=== PATIENT | male | born 1990 | race Caucasian/White ===

== ENCOUNTER 2024-06-20 14:45 | Emergency (ER) | payer BC, SELFPAY ==
[2024-06-20 14:50] VITALS: BP 131/90; BMI 24.7
--- NOTE | 2024-06-20 16:17 | ED.GENMED ---
Addendum entered and electronically signed by Zeus Laura PA-C 06/24/24 09:51:
Stool Cx positive for aeromonas. Pt indicates that his symptoms are worsening after 9 days. Will treat w/ azithromycin
Original Note:
History of Present Illness
<Ashish Mendoza MD, Resident - Last Filed: 06/20/24 19:34>
General
Chief Complaint: Dehydration Symptoms
Time Seen by Provider: 06/20/24 16:03
History of Present Illness
History of Present Illness:
34-year-old male presented to the ED with 4-day history of diarrhea, vomiting, fatigue, chills. He went to [facility] for vacation n 06/12. Symptoms started on 06/17/24 and on the first day he had 25 episodes of watery diarrhea . He took
Motrin for fever and chills. Despite traveling with 25 other family members he was only one affected by the symptoms. He denies any hematuria, hematochezia, hematemesis. He had only 1 episode of vomiting. He is currently staying hydrated
by drinking plenty of water and Gatorade. Yesterday he had 10 episodes of diarrhea, the only meal he had was half a sandwich. His diet on vacation included fruits, vegetables, chicken, seafood and he drank bottled water. He also reports of
some abdominal cramps. He has had 3 episodes of watery diarrhea in the past hour.
Review of Systems
<Ashish Mendoza MD, Resident - Last Filed: 06/20/24 19:34>
Review of Systems
ABD/GI: Reports abdominal pain, vomiting and diarrhea
Phy Exam
<Ashish Mendoza MD, Resident - Last Filed: 06/20/24 19:34>
General Physical Exam
General Presentation: well appearing
ENT Exam
ENT Exam: EOMI
Eye Exam
Eye Exam: PERRL
Cardiovascular Exam
Cardiovascular Exam: regular rate/rhythm and no murmur
Pulmonary Exam
Pulmonary Exam: lungs clear, no rales, no crackles, no rhonchi and no wheezing
Gastrointestinal Exam
Gastrointestinal Exam: normal bowel sounds, non tender, soft and non distended
Neurological Exam
Neurological Exam: alert and oriented x3
Psychiatric Exam
Psychiatric Exam: normal mood/affect
Course
<Ashish Mendoza MD, Resident - Last Filed: 06/20/24 19:34>
Orders/Labs/Results
Orders:
Orders
06/20/24 16:14
0.9% Sodium Chloride 500 ml [Nss] 500 ml IV BOLUS
06/20/24 16:29
Complete Blood Count/With Diff Urgent
Comprehensive Metabolic Panel Urgent
06/20/24 17:11
0.9% Sodium Chloride 1000 ml [Nss] 1,000 ml IV BOLUS
06/20/24 17:33
CDIFF [C difficile Antigen & Toxins] Urgent
LING Source: Feces/Stool
Specimen Description:
Date Specimen was Collected: 06/20/24
Time Specimen was Collected: 17:32
Ova & Parasites Giardia/Crypto AG [Giardia/Cryptosporidium Ag] Urgent
LING Source: Feces/Stool
Specimen Description:
Date Specimen was Collected: 06/20/24
Time Specimen was Collected: 17:32
Stool Culture Urgent
LING Source: Feces/Stool
Specimen Description:
Date Specimen was Collected: 06/20/24
Time Specimen was Collected: 17:32
06/20/24 17:59
Potassium Chloride 10% Elixir [KCl Elixir] 40 meq PO NOW STA
Abnormal Lab Results
06/20/24
16:29
MCV 77.4 L fL
(80.0-94.0)
Absolute Lymphs (auto) 1.0 L 10^3/uL
(1.2-3.4)
Absolute Monos (auto) 1.1 H 10^3/uL
(0.1-0.6)
Lymphocytes % 16.9 L %
(20.5-51.1)
Monocytes % 19.1 H %
(1.7-9.3)
Sodium 132 L mmol/L
(135-145)
Potassium 3.4 L mmol/L
(3.5-5.1)
Chloride 96 L mmol/L
(98-107)
Glucose 103 H mg/dl
(70-99)
06/20/24 16:29
06/20/24 16:29
Vital Signs
Initial and Last Documented VS:
Initial Vital Signs
Temp Pulse Resp BP Pulse Ox
98.4 F 118 20 131/90 100
06/20/24 14:50 06/20/24 14:50 06/20/24 14:50 06/20/24 14:50 06/20/24 14:50
Last Documented Vital Signs
Temp Pulse Resp BP Pulse Ox
98.4 F 92 20 131/90 100
06/20/24 14:50 06/20/24 16:27 06/20/24 14:50 06/20/24 14:50 06/20/24 16:27
<Miguel Angel Barragan MD - Last Filed: 06/20/24 17:13>
Orders/Labs/Results
Orders:
Orders
06/20/24 16:14
0.9% Sodium Chloride 500 ml [Nss] 500 ml IV BOLUS
06/20/24 16:29
Complete Blood Count/With Diff Urgent
Comprehensive Metabolic Panel Urgent
06/20/24 17:11
0.9% Sodium Chloride 1000 ml [Nss] 1,000 ml IV BOLUS
06/20/24 17:33
CDIFF [C difficile Antigen & Toxins] Urgent
LING Source: Feces/Stool
Specimen Description:
Date Specimen was Collected: 06/20/24
Time Specimen was Collected: 17:32
Ova & Parasites Giardia/Crypto AG [Giardia/Cryptosporidium Ag] Urgent
LING Source: Feces/Stool
Specimen Description:
Date Specimen was Collected: 06/20/24
Time Specimen was Collected: 17:32
Stool Culture Urgent
LING Source: Feces/Stool
Specimen Description:
Date Specimen was Collected: 06/20/24
Time Specimen was Collected: 17:32
06/20/24 17:59
Potassium Chloride 10% Elixir [KCl Elixir] 40 meq PO NOW STA
Abnormal Lab Results
06/20/24
16:29
MCV 77.4 L fL
(80.0-94.0)
Absolute Lymphs (auto) 1.0 L 10^3/uL
(1.2-3.4)
Absolute Monos (auto) 1.1 H 10^3/uL
(0.1-0.6)
Lymphocytes % 16.9 L %
(20.5-51.1)
Monocytes % 19.1 H %
(1.7-9.3)
Sodium 132 L mmol/L
(135-145)
Potassium 3.4 L mmol/L
(3.5-5.1)
Chloride 96 L mmol/L
(98-107)
Glucose 103 H mg/dl
(70-99)
06/20/24 16:29
06/20/24 16:29
Vital Signs
Initial and Last Documented VS:
Initial Vital Signs
Temp Pulse Resp BP Pulse Ox
98.4 F 118 20 131/90 100
06/20/24 14:50 06/20/24 14:50 06/20/24 14:50 06/20/24 14:50 06/20/24 14:50
Last Documented Vital Signs
Temp Pulse Resp BP Pulse Ox
98.4 F 92 20 131/90 100
06/20/24 14:50 06/20/24 16:27 06/20/24 14:50 06/20/24 14:50 06/20/24 16:27
<Ashish Mendoza MD, Resident - Last Filed: 06/20/24 19:34>
*Critical Care Note
Total Time (30-74mins, 75-104mins- exclusive of procedures): Not Applicable
<Ashish Mendoza MD, Resident - Last Filed: 06/20/24 19:34>
Update Note
Update Note:
34-year-old male presented to the ED with potential gastroenteritis. We will conduct stool testing for Giardia, cryptococcus and C. difficile antigen and also stool culture. Additionally will also check CBC, CMP. Will give him 1 L of IV fluids.
Physical exam was reassuring . Shigella enterotoxin E. coli is also in the differential , will wait for stool culture results. If it is positive then we will add antibiotics however if everything remains stable then we will treat him with
supportive care.
Plan to discharge the patient as he feels better and is stable. Advised for supportive care at home, more proteins and less carb and fat diet. We will call the patient with lab results. Advised to hydrate with Gatorade and water.
ED Attending Note
<Ashish Mendoza MD, Resident - Last Filed: 06/20/24 19:34>
-
Portions of this chart may have been created with voice recognition software.� Occasional wrong word or��sound alike� substitutions may have occurred due to the inherent limitations of voice recognition software.
<Miguel Angel Barragan MD - Last Filed: 06/20/24 17:13>
ED Attending Note
Patient seen and examined by attending physician: Yes
I performed the substantive portion of visit, reviewed & personally made and approve the management plan that is documented in note by myself or RAZ.: Yes
I performed a history and physical exam of patient and discussed management with resident, I reviewed resident's note and agree with documented findings and plan of care.: Yes
ED Attending Note:
34-year-old healthy male with 3 to 4 days of significant watery diarrhea. No blood or mucus. Initially had some fever and chills but that has resolved. 1 episode of vomiting days ago but none now. Patient returned from the [facility].
No one else was ill at that time. No recent antibiotics.
On exam patient is nontoxic in no distress. Lungs clear and equal. Heart regular rate and rhythm no murmur. Borderline tachycardia. Abdomen is soft and nontender. Warm and dry. Perfusing well.
All consistent with a infectious diarrhea. Stool pending. Labs electrolytes and fluids. Hold on antibiotics pending stool culture.
Discharge Plan
Departure
Patient Disposition: Home (Routine Discharge)
Date of Disposition: 06/20/24
Time of Disposition: 18:06
Patient with high blood pressure during this ER visit?: Yes
Discharge Problem:
Enterocolitis, Likely infectious, Minimal hypokalemia
Instructions: Hypokalemia, Diarrhea and Traveler's Diarrhea, Adult (DC), BLOOD PRESSURE
Referrals:
Vernon Leiva MD [Family Provider] - Follow up in 2-3 days
Interventions
Interventions:
*Risk Screen - Suicide Last Done: 06/20/24 14:50
*General Assessment Last Done: 06/20/24 17:46
*Neglect/Abuse Screening Last Done: 06/20/24 14:50
ED- Fall Risk Assessment Last Done: 06/20/24 17:46
*ED COVID-19 Vaccine History Last Done: 06/20/24 17:46
*Nursing Disposition Last Done: 06/20/24 18:23
ED- Cardiac Assessment Last Done: 06/20/24 16:30
ED- Neurological Assessment Last Done: 06/20/24 16:30
ED- Pulmonary Assessment Last Done: 06/20/24 16:30
Discharge Date and Time
Discharge Date/Time: 06/20/24 18:23
Print Language: [place]
[2024-06-20] MEDS: NSS 500 IV (16:34)
[2024-06-20 16:39] LABS: % Basophils 0.5 % (0-2); % Eosinophils 0.3 % (0-6); % Immature Granulocytes 0.2 % (0-0.5); % Lymphocytes 16.9 % (20.5-51.1); % Monocytes 19.1 % (1.7-9.3); Absolute Monocytes 1.1 10^3/uL (0.1-0.6); Absolute Neutrophils 3.7 10^3/uL (1.4-6.5); Hematocrit 39.8 % (39.0-52.0); Hemoglobin 14.6 g/dL (13.0-18.0); Mean Corp Hgb Conc. 36.7 g/dL (33.0-37.0); Mean Corpuscular Hgb 28.4 pg (27.0-31.0); Mean Corpuscular Volume 77.4 fL (80.0-94.0); Mean Platelet Volume 8.9 fL (7.4-10.4); Nucleated Red Blood Cells % 0 % (-); Platelet Count 188 10^3/uL (130-400); Red Blood Cell Count 5.14 10^6/uL (4.70-6.10); Red Cell Dist. Width 12.3 % (11.5-14.5); White Blood Cell Count 5.8 10^3/uL (4.8-10.8)
[2024-06-20 16:48] LABS: ALT (SGPT) 37 U/L (0-50); AST (SGOT) 29 U/L (17-59); Albumin 4.6 g/dl (3.5-5.0); Alkaline Phosphatase 77 U/L (38-126); Blood Urea Nitrogen 9 mg/dl (9-20); Calcium 9.3 mg/dl (8.4-10.2); Carbon Dioxide 28 mmol/L (22-30); Chloride 96 mmol/L (98-107); Estimated Creatinine Clearance > 125 ml/min; Glucose 103 mg/dl (70-99); Potassium 3.4 mmol/L (3.5-5.1); Sodium 132 mmol/L (135-145); Total Bilirubin 0.6 mg/dl (0.2-1.3); eGFR > 60.00
[2024-06-20] MEDS: NSS 1000 IV (17:12)
[2024-06-20] MEDS: KCL ELIXIR 40 MEQ PO (18:07)
== END 2024-06-20 18:23 | disposition home or self-care (01) ==
LOC: EMR 14:45
PROVIDERS: Student in an Organized Health Care Education/Training Program; EMERGENCY PHYSICIAN Emergency Medicine; FAMILY PHYSICIAN Family Medicine
DX: K52.9 Noninfective gastroenteritis and colitis, unspecified (principal); E87.6 Hypokalemia
CPT/HCPCS: 99284; 96360; 80053; 85025; 87045; 87046; 87077; 87324; 87328; 87329; 87427; 87449